=== PATIENT | female | born 1965 | race Caucasian/White ===

== ENCOUNTER 2022-02-26 13:16 | Outpatient (REF) | payer MEDICAID, SELFPAY ==
--- NOTE | ~2022-02-26 | MM_ITS ---
EXAMINATION: MM SCREENING DIGITAL BREAST TOMOSYNTHESIS, BILATERAL CLINICAL INFORMATION: Screening. Asymptomatic. Prior history reduction mammoplasty. The lifetime risk of breast cancer based on the Tyrer-Cuzick Model is 4%. COMPARISON: Mammography: 03/17/2017 (new baseline). TECHNIQUE: Digital breast tomosynthesis is performed in both the craniocaudal and mediolateral oblique views along with computer-aided detection (CAD). Synthesized 2D images are generated from the tomosynthesis. FINDINGS: There are scattered areas of fibroglandular density (ACR BI-RADS breast composition Category b). Parenchymal pattern is similar to prior new baseline exam. There is scattered minor scarring and benign bulky rim calcifications consistent with the reduction mammoplasty. There are stable minor fibroglandular asymmetries. No significant mass. The axilla and skin contours are unremarkable. MM/MM tomosynthesis screening BI IMPRESSION: No mammographic evidence of malignancy. ASSESSMENT: BI-RADS 2: Benign RECOMMENDATION: Routine annual mammography screening. This patient's information was entered into a reminder system with a target due date for their next mammogram.
== END 2022-02-26 13:17 | disposition home or self-care (01) ==
LOC: HO.MAMMO 13:16
PROVIDERS: PCP Internal Medicine; Visit Provider Internal Medicine
DX: Z12.31 Encounter for screening mammogram for malignant neoplasm of breast (principal)
CPT/HCPCS: 77063; 77067

== ENCOUNTER 2023-01-31 13:03 | Outpatient (REF) | payer MEDICAID, SELFPAY ==
[2023-01-31 16:06] LABS: MANUAL DIFF FLAG NO
[2023-01-31 16:31] LABS: Basophils Percent Auto 0.4 % (0-2); Eosinophils Absolute Auto 0.2 X10*3/uL (0.0-0.4); Eosinophils Percent Auto 3.9 % (0-4); Hematocrit 37.6 % (37.0-47.0); Hemoglobin 12.2 g/dl (12.0-16.0); Imm Gran Abs Auto 0.06 X10*3/uL (0.00-0.03); Imm Gran Pct Auto 1.1 % (0.0-0.4); Lymphocytes Absolute Auto 1.5 X10*3/uL (1.2-4.9); Lymphocytes Percent Auto 25.8 % (20-40); Mean Corpuscular HGB Conc 32.4 g/dl (31.0-35.0); Mean Corpuscular Hemoglobin 30.3 pg (27.0-33.0); Mean Corpuscular Volume 93.5 fL (80.0-98.0); Mean Platelet Volume 11.9 fL (9.4-12.3); Monocytes Absolute Auto 0.4 X10*3/uL (0.1-1.2); Monocytes Percent Auto 7.8 % (2-11); Neutrophils Absolute Auto 3.5 x10*3/uL (2.0-8.3); Platelet Count 242 X10*3/uL (160-400); Red Blood Count 4.02 X10*6/uL (4.20-5.50); Red Cell Distribution Width 13.3 % (11.0-16.0); White Blood Count 5.7 X10*3/uL (4.8-10.8)
[2023-01-31 17:16] LABS: Alanine Aminotransferase 20 U/L (0-31); Albumin Level 3.6 g/dL (3.5-5.0); Alkaline Phosphatase 65 U/L (39-117); Anion Gap 11 (12-20); Aspartate Amino Transferase 18 U/L (5-31); Bilirubin Direct 0.2 mg/dL (0.0-0.5); Bilirubin Total 0.5 mg/dL (0.0-1.0); Blood Urea Nitrogen 10 mg/dL (9-16); Calcium 9.2 mg/dL (8.4-10.2); Carbon Dioxide 22 mmol/L (22-29); Chloride 109 mmol/L (96-108); Cholesterol 163 mg/dL; Estimated Glomerular Filt Rate > 60; Glucose Random 111 mg/dL (60-115); HDL Cholesterol 56 mg/dL; LDL Cholesterol Calculated 92 mg/dl; Potassium 4.1 mmol/L (3.3-5.1); Sodium 138 mmol/L (135-145); Total Protein 7.1 g/dL (6.5-8.0); Triglycerides 78 mg/dL
[2023-01-31 17:33] LABS: Free T4 (Free Thyroxine) 0.91 ng/dL (0.71-1.85)
[2023-02-01 05:27] LABS: Estimated Average Glucose 111 mg/dL; Hemoglobin A1c % 5.5 %
== END 2023-01-31 13:04 | disposition home or self-care (01) ==
LOC: HO.HHCL 13:03
PROVIDERS: Visit Provider Internal Medicine
DX: F33.2 Major depressive disorder, recurrent severe without psychotic features (principal); J45.40 Moderate persistent asthma, uncomplicated
CPT/HCPCS: 36415; 80048; 80061; 80076; 83036; 84439; 85025

== ENCOUNTER 2023-04-05 15:03 | Outpatient (AMB) | payer MEDICAID, SELFPAY ==
--- NOTE | 2023-04-05 15:11 | MHC.OFFVIS ---
Intake Intake Visit Reasons: UPPER CUTTER OUT/HHC for VV Intake Note: UPPER CUTTER OUT/PCP referral for bilateral LE rope like VV for many years Allergies No Known Allergies [No Known Allergies*] Allergy (Unverified 04/05/23 15:17) HPI UPPER CUTTER OUT/HHC for VV HPI Details Pleasant 57-year-old female patient presents for painful varicose veins. Complaints include pain over varicosities, swelling of lower extremities, cramping, fatigue, and heaviness of the lower extremities. It has been affecting there daily activities including walking. It is noted more so in left leg. Most concerning is a cluster varicosities in the left posterior thigh. Patient denies any previous venous surgery or injections. Patient denies any history of DVT/ PE. Patient denies any history of phlebitis. Trial of compression includes - [id number] They now present for vascular evaluation regarding their varicose veins. Review of Systems Const Reports as per HPI ENT Reports no additional complaints Card Denies chest pain, Denies chest pain at rest and Denies chest pain with activity Resp Denies chest congestion and Denies cough GI Reports no additional complaints Musc Details: pain over varicosities, aching of lower extremities, swelling, cramping, heaviness and tiredness, itching Denies abnormal gait Skin/Breast Reports pruritus and Denies wounds Neuro Reports no additional complaints and Denies abnormal gait Psych Denies no additional complaints Physical Exam Const General: cooperative, healthy appearing and comfortable Orientation/consciousness: oriented to person, oriented to place and oriented to time Neck Carotids: no bruits Chest Chest palpation & inspection: normal inspection of the chest and normal palpation of entire chest wall Resp Effort & Inspection: normal respiratory effort and able to speak in complete sentences Cardio Rate: regular rate Heart sounds: S1 normal heart sound present and S2 normal heart sound present Peripheral pulses: Peripheral pulses 2+ throughout GI Inspection: Yes normal to inspection Skin Other: +2 edema, cluster of varicosities in left posterior thigh General skin exam: dry skin Neuro General: oriented to person, oriented to place and oriented to time Extrem Right lower extremity: full ROM, normal capillary refill and edema Left lower extremity: full ROM, normal capillary refill and edema Psych Mental Status: mental status grossly normal Assessment & Plan Assessment & Plan (1) Varicose veins of left lower extremity with inflammation: Code(s): I83.12 - Varicose veins of left lower extremity with inflammation Plan: In short, the patient has evidence of venous insufficiency. I have discussed the pathophysiology with the patient. In addition I have provided informational material regarding venous disease to the patient. We have discussed conservative measures including compression, elevation, and exercise. I have also provided a handout regarding appropriate use of compression stockings and where to purchase good compression stockings as well. I have taken the liberty of ordering venous insufficiency testing with the patient. They will follow up with me after testing. The patient had an opportunity to ask questions regarding the treatment plan. All questions were answered. Imaging studies, laboratory studies and physical exam results were discussed and reviewed in detail. No major barriers to understanding were identified. The patient expressed understanding and agreement with the above treatment plan. The patient is aware they should contact our office by phone for worsening of the current condition or the appearance of new symptoms. Thank you for allowing me to participate in the vascular care of this patient. If you have any questions or concerns regarding the treatment for the above condition please do not hesitate to contact me. The office telephone contact is [phone]. This note is constructed using voice recognition software. While every effort has been made to ensure accuracy, equipment operat0r errors may have been included. Thank you for allowing me to participate in the care of your patient. Yours sincerely, Gregory Dawson MD, FACS, R.P.V.I. Orders: Orders US venous duplex LE BI 1 Week I83.12 - Varicose veins of left lower extremity with inflammation Coding Level of Care Code New Pt Level 4 (88797) Diagnoses Varicose veins of left lower extremity with inflammation I83.12
== END 2023-04-05 15:29 | disposition home or self-care (01) ==
PROVIDERS: PCP Internal Medicine; Visit Provider Surgery Vascular Surgery
DX: I83.12 Varicose veins of left lower extremity with inflammation (principal)
CPT/HCPCS: 99203

== ENCOUNTER → 2023-04-05 15:03 | Outpatient (BNVA) | payer MEDICAID, SELFPAY | PROVIDERS: PCP Internal Medicine; Visit Provider Surgery Vascular Surgery ==

== ENCOUNTER 2023-04-13 08:25 | Outpatient (REF) | payer MEDICAID, SELFPAY ==
--- NOTE | ~2023-04-13 | US_ITS ---
EXAMINATION: RIGHT and LEFT LOWER EXTREMITY VENOUS ULTRASOUND (Reflux Exam) CLINICAL INDICATION: Varicose veins of left lower extremity with inflammation COMPARISON: None. TECHNIQUE: Color flow triplex imaging and compression Doppler was performed to evaluate both the deep and the superficial systems bilaterally. To evaluate the superficial system, the examination was performed in the upright position. Color-flow Doppler ultrasound and compression ultrasound were utilized. In addition, maneuvers were utilized to demonstrate reflux. FINDINGS: 1. DEEP VENOUS ULTRASOUND OF THE RIGHT LOWER EXTREMITY: Respiratory variation, normal compression and augmented flow are noted in the right common femoral vein as well as the right popliteal vein and there is no evidence of deep venous thrombosis at these locations. There is no evidence of reflux in the deep system in either the common femoral vein or the popliteal vein. There is no evidence of a Caba's cyst. 2. SUPERFICIAL ULTRASOUND WITH DOPPLER OF RIGHT LOWER EXTREMITY: The right great saphenous vein at the saphenofemoral junction measures 8 mm, at the mid thigh 2 mm, ifple-nzw-sfrp 2 mm, aaocu-def-eigj 2 mm, at mid calf 3 mm and at the ankle measures 3 mm. There is no reflux demonstrated in the right great saphenous vein. The right small saphenous vein measures 2-3 mm and shows no reflux. There are small perforators in the distal thigh and lower leg measuring 2 to 3 mm without reflux. 3. DEEP VENOUS ULTRASOUND OF THE LEFT LOWER EXTREMITY: Respiratory variation, normal compression and augmented flow are noted in the left common femoral vein as well as the left popliteal vein and there is no evidence of deep venous thrombosis at these locations. There is no evidence of reflux in the deep system in either the common femoral vein or the popliteal vein. . There is no evidence of a Caba's cyst. 4. SUPERFICIAL ULTRASOUND WITH DOPPLER OF LEFT LOWER EXTREMITY: Left great saphenous vein at the saphenofemoral junction measures 3 mm, at the mid thigh 3 mm, nxvns-nhn-kzcl 2 mm, therc-caz-nppm 2 mm, at mid calf 2 mm and at the ankle measures 2 mm. There is no reflux demonstrated in the left great saphenous vein. The left small saphenous vein measures 1-2 mm and shows no reflux. There is a water trainer in the mid thigh measuring 1 mm without reflux. US/US venous duplex LE BI IMPRESSION: 1. No evidence of reflux or thrombus in the common femoral veins or popliteal veins bilaterally. 2. The saphenous systems are competent bilaterally.
== END 2023-04-13 08:26 | disposition home or self-care (01) ==
LOC: HO.US 08:25
PROVIDERS: PCP Internal Medicine; Visit Provider Surgery Vascular Surgery
DX: I83.12 Varicose veins of left lower extremity with inflammation (principal)
CPT/HCPCS: 93970

== ENCOUNTER 2023-05-24 18:20 | Outpatient (REF) | payer MEDICAID, SELFPAY | END 2023-05-24 18:21 | disposition home or self-care (01) | LOC: HO.HHCLNP 18:20 | PROVIDERS: Visit Provider Internal Medicine | DX: J06.9 Acute upper respiratory infection, unspecified (principal) | CPT/HCPCS: 87070 ==

== ENCOUNTER 2023-06-16 13:51 | Outpatient (AMB) | payer MEDICAID, SELFPAY ==
--- NOTE | 2023-06-16 13:53 | A.OFFVIS_ITS ---
Intake Intake Visit Reasons: Follow Up Arterial US Intake Note: FU us on 04/13/23 pt states she still gets pain in her legs but mostly her left one and she notices more when she walks Testing Machine Operator Required: Yes Testing Machine Operator Name: herve salas Information Interpreted: non-clinical & clinical Allergies No Known Allergies [No Known Allergies*] Allergy (Verified 06/16/23 13:56) HPI Follow Up Arterial US HPI Details Very pleasant 58-year-old female presents for follow-up regarding venous insufficiency. She originally presented for lower extremity pain. She reports that it was more on her left leg in on the lateral aspect. She reports that it is more so when she is ambulatory and she also has an unusual sensation in that knee location. She now presents for follow-up with venous insufficiency testing. Review of Systems Const All systems reviewed & are unremarkable except as noted in HPI and below Reports no additional complaints ENT Reports Normal hearing present Card Denies chest pain, Denies chest pain at rest, Denies chest pain with activity and Denies pedal edema Resp Denies cough GI Denies abdominal pain Musc Denies abnormal gait, Denies muscle cramps and Denies radiating pain into limb Skin/Breast Denies skin ulcer and Denies wounds Neuro Reports Normal hearing present and Denies abnormal gait Psych Reports no additional complaints Physical Exam Const General: cooperative, healthy appearing and comfortable Orientation/consciousness: oriented to person, oriented to place and oriented to time HEENT Head: Yes normal to inspection Neck Neck: Yes normal visual inspection Carotids: no bruits Chest Chest palpation & inspection: normal inspection of the chest Resp Effort & Inspection: normal respiratory effort and able to speak in complete sentences Auscultation: clear to auscultation bilaterally, no crackles, no rales, no rhonchi and no wheezes Cardio Rate: regular rate Rhythm: regular rhythm Heart sounds: S1 normal heart sound present and S2 normal heart sound present Bruits: no carotid bruits Peripheral pulses: Peripheral pulses 2+ throughout GI Inspection: Yes normal to inspection Skin Wounds: no wounds Hair: normal Neuro General: oriented to person, oriented to place and oriented to time Cranial nerves: Yes CN's II-XII intact bilaterally and Yes Normal hearing present Cognition (Neuro): normal cognition Motor exam (neuro): 5/5 motor strength present throughout Extrem Other: venous exam: No significant superficial varicosities or spider telangiectasias, minimal edema General: No clubbing, No cyanosis and No edema Psych Appearance: grossly normal Mental Status: mental status grossly normal Speech and movement: Normal speech and movement present Results Reviewed Results Reviewed: Brief summary of venous insufficiency testing is as follows: right great saphenous vein: negative right small saphenous vein: negative right accessory vein: none present left great saphenous vein: negative left small saphenous vein: negative left accessory vein: none present Please note there is no evidence of any venous aneurysms or significant tortuosity Assessment & Plan Assessment & Plan (1) Leg pain, bilateral: Code(s): M79.604 - Pain in right leg; M79.605 - Pain in left leg Plan: Unclear etiology of lower extremity pain. Does not appear to be vascular in nature as she does have palpable pulses and venous insufficiency testing has shown to be negative. This left knee pain may be more orthopedic in nature. Should persist may benefit from x-ray and possible orthopedic evaluation. She will follow up with us on an as-needed basis. Should there be any questions or concerns please do not hesitate to contact us. Thank you for allowing us to assist in her care Coding Level of Care Code Est Pt Level 4 (16921) Diagnoses Leg pain, bilateral M79.604; M79.605
== END 2023-06-16 14:14 | disposition home or self-care (01) ==
PROVIDERS: PCP Internal Medicine; Visit Provider Surgery Vascular Surgery
DX: M79.604 Pain in right leg (principal); M79.605 Pain in left leg
CPT/HCPCS: 99213

== ENCOUNTER → 2023-06-16 13:51 | Outpatient (BNVA) | payer MEDICAID, SELFPAY | PROVIDERS: PCP Internal Medicine; Visit Provider Surgery Vascular Surgery | DX: M79.604 Pain in right leg (principal); M79.605 Pain in left leg | CPT/HCPCS: 99212 ==

== ENCOUNTER 2024-01-23 15:56 | Outpatient (REF) | payer MEDICAID, SELFPAY | END 2024-01-23 15:57 | disposition home or self-care (01) | LOC: HO.HHCLNP 15:56 | PROVIDERS: Visit Provider Internal Medicine | DX: R39.9 Unspecified symptoms and signs involving the genitourinary system (principal) | CPT/HCPCS: 87086 ==

== ENCOUNTER 2024-08-08 16:10 | Outpatient (REF) | payer MEDICAID, SELFPAY ==
--- OUTSIDE RECORDS SUMMARY | 2024-08-08 18:12 | XMS_ITS | Encounter Summary ---
Author Organization [employer] Address [address] [place] [address] Care Team Providers Care Solar Energy Systems Designer Name Role Phone Denise Fleming MD Primary Care Provide r Reason for Visit * Reason Comments Med Refill Encounter Details Date Type Department Care Team (Late st Contact Info) Description 12/21/2023 Refill [facility] [address] [place], [place] [phone] Denise Fleming MD [address] [place], [place] [phone] Primary insomnia Social History Tobacco Use Types Packs/Day Years Used Date Smoking Tobacco: Never Passive Smoke Exposure: Never Smokeless Tobacco: Never Alcohol Use Standard Drinks/Week Comments Never 0 (1 standard drink = 0.6 oz pur e alcohol) Depression Answer Date Recorded Patient Health Questionnaire-9 Score 21 02/01/2023 Housing Stability Answer Date Recorded What is your housing situation today? I have andres pelayo 08/25/[address] you li ve. Do you have problems with any of the following? Lead [place] or [employer] 08/25/2023 Food Insecurity Answer Date Recorded Within the past 12 months, y ou worried that your food would run out before you got money to buy more: Never True 05/03/2023 Within the past 12 months,th e food you bought just didn't last and you didn't have enough money to get more: Never True Transportation Answer Date Recorded In the past 12 months, has l ack of transportation kept you from medical appts, meetings, work or from getting things needed for daily living? No 05/03/2023 Utilities Answer Date Recorded In the past 12 months, has t he electric, gas, oil or water company threatened to shut off services in your home? No 05/03/2023 Depression Answer Date Recorded Patient Health Questionnaire-2 Score 6 02/01/2023 Comments Unknown Sex and Gender Information Value Date Recorded Sex Assigned at Female 05/17/2022 10:20 AM EDT Legal Sex Female 10:20 AM EDT Gender Identity Female 05/17/2022 10:20 AM EDT Sexual Orientation Straight 05/17/2022 10 :20 AM EDT documented as of this encounter Plan of Treatment Upcoming Encounters Date Type Department Care Team (Late st Contact Info) Description 09/17/2024 2:45 PM EST Office Visit [facility] [address] [place] [phone] Denise Fleming MD [address] [place] [phone] documented as of this encounter Visit Diagnoses Diagnosis Primary insomnia Persistent disorder of initiating or maintaining sleep documented in this encounter Additional Health Concerns Assessment Noted Time PHQ-9 Depression Total Score: 21 023 4:00 PM EDT documented as of this encounter Care Teams Solar Energy Systems Designer Relationship Specialty Start Date End Date Denise Fleming MD [address] [place] [id number] PCP - General Family Medicine 05/10/19 documented as of this encounter
--- OUTSIDE RECORDS SUMMARY | 2024-08-08 18:12 | XMS_ITS | Encounter Summary ---
Author Organization [facility] Address [address] [facility] [address] [facility] [address] [place] [address] Care Team Providers Care Fitter / Welder Name Role Phone Denise Fleming MD Primary Care Provide r Reason for Visit * Reason Onset Date Comments Appointment 01/21/2023 Encounter Details Date Type Department Care Team ([facility] st Contact Info) Description 01/21/2023 Telephone [facility] [address] [place], [place] [phone] Jose Person DDS [address] [place], [place] [phone] Appointment Social History Tobacco Use Types Packs/Day Years Used Date Smoking Tobacco: Never Smokeless Tobacco: Never Alcohol Use Standard Drinks/Week Comments Never 0 (1 standard drink = 0.6 oz pur e alcohol) Comments Unknown Sex and Gender Information Value Date Recorded Sex Assigned at Female 05/17/2022 10:20 AM EDT Legal Sex Female 10:20 AM EDT Gender Identity Female 05/17/2022 10:20 AM EDT Sexual Orientation Straight 05/17/2022 10 :20 AM EDT COVID-19 Exposure Response Date Recorded In the last 10 days, have yo u been in contact with someone who was confirmed or suspected to have Coronavirus/COVID-19? No / Unsure 01/20/2023 3:15 PM EDT documented as of this encounter Miscellaneous Notes * Telephone Encounter - Merced Coker - 01/24/2023 1:57 PM EDT Patient calling in again to confirm if case is back from lab. * Telephone Encounter - Ida Tesfayegas - 01/24/2023 12:22 PM EDT Denise Castaneda 1965 Patient called in to confirm if partial is ready for moss picker please advise. * Telephone Encounter - Iad Biggs - 01/21/2023 12:45 PM EDT Okay thank you I will inform patient * Telephone Encounter - Ida Biggs - 01/21/2023 12:22 PM EDT Denise Castaneda 1965 Patient called in to confirm if partial is ready for moss picker please advise. documented in this encounter Plan of Treatment Upcoming Encounters Date Type Department Care Team (Late st Contact Info) Description 09/17/2024 2:45 PM EST Office Visit [facility] [address] [place], [place] [phone] Denise Fleming MD [address] [place] [phone] documented as of this encounter Visit Diagnoses Not on filedocumented in this encounter Care Teams Fitter / Welder Relationship Specialty Start Date End Date Denise Fleming MD [address] [place] [address] PCP - General Family Medicine 05/10/19 documented as of this encounter
--- OUTSIDE RECORDS SUMMARY | 2024-08-08 18:12 | XMS_ITS | Encounter Summary ---
Author Organization [employer] Address [address] [place] [address] Care Team Providers Care X Ray Control Equipment Repairer Name Role Phone Denise Fleming MD Primary Care Provide r Reason for Visit * Reason Onset Date Comments Nurse Triage 03/30/2024 Encounter Details Date Type Department Care Team ([facility] st Contact Info) Description 03/30/2024 Telephone [facility] [address] [place], [place] [phone] Denise Fleming MD [address] [place] [address] Nurse Triage Social History Tobacco Use Types Packs/Day Years Used Date Smoking Tobacco: Never Passive Smoke Exposure: Never Smokeless Tobacco: Never Alcohol Use Standard Drinks/Week Comments Never 0 (1 standard drink = 0.6 oz pur e alcohol) Depression Answer Date Recorded Patient Health Questionnaire-9 Score 24 03/13/2024 Patient Health Questionnaire-9 Score 24 03/13/2024 Last PHQ-9: Questionnaire Data Not on file 0 03/13/2024 Housing Stability Answer Date Recorded What is your housing situation today? I have andres pelayo 08/25/[address] you li ve. Do you have problems with any of the following? Lead [place] or [employer] 08/25/2023 Food Insecurity Answer Date [...] Date Recorded Patient Health Questionnaire-2 Score 6 03/13/2024 Comments Unknown Sex and Gender Information Value Date Recorded Sex Assigned at Female 05/17/2022 10:20 AM EDT Legal Sex Female 10:20 AM EDT Gender Identity Female 05/17/2022 10:20 AM EDT Sexual Orientation Straight 05/17/2022 10 :20 AM EDT documented as of this encounter Miscellaneous Notes * Telephone Encounter - Leida Cooney RN - 03/30/2024 2:18 PM EDT Called pt via [employer] [phone]. Called [phone] There was an unexpected problemdialing this number please try again. Verified number on file with [employer] and same message came on the phone. Unable to reach pt. Called alternative number [phone] to call Son to verify pt. Phone number and a message came on the phone stating This number is restricted please try again later. Unable to reach pt. Will send this message to [facility] to try to reach out to pt. RE: Anxiety/Panic attack * Telephone Encounter - Edison Diane - 03/30/2024 2:05 PM EDT Symptom: Anxiety or Panic Attack Outcome: Schedule an urgent appointment (within 4 hours) or talk to a nurse or provider soon Reason: Anxiety keeps from normal daily activities (such as school or work) The caller accepted this outcome Patient speaks swedish documented in this encounter Plan of Treatment Upcoming Encounters Date Type Department Care Team (Late st Contact Info) Description 09/17/2024 2:45 PM EST Office Visit [facility] [address] [place] [address] Denise Fleming MD [address] [place] [address] documented as of this encounter Visit Diagnoses Not on filedocumented in this encounter Additional Health Concerns Assessment Noted Time PHQ-9 Depression Total Score: 24 024 1:27 PM EDT documented as of this encounter Care Teams X Ray Control Equipment Repairer Relationship Specialty Start Date End Date Denise Fleming MD [address] [place] [address] PCP - General Family Medicine 05/10/19 documented as of this encounter
--- OUTSIDE RECORDS SUMMARY | 2024-08-08 18:12 | XMS_ITS | Encounter Summary ---
Author Organization [facility] Address [address] [place] [address] 7t [place] [address] Care Team Providers Care Bobbin Doffer Name Role Phone Denise Fleming MD Primary Care Provide r Encounter Details Date Type Department Care Team (Late Contact Info) Description 11/08/2022 Orders Only [facility] [address] [place] [address] [phone] Lisette Rivera LPN Social History Tobacco Use Types Packs/Day Years Used Date Smoking Tobacco: Never Assessed Comments Unknown Sex and Gender Information Value [...] suspected to have Coronavirus/COVID-19? No / Unsure 11/09/2022 10:51 AM EDT documented as of this encounter Plan of Treatment Upcoming Encounters Date Type Department Care Team (Late st Contact Info) Description 09/17/2024 2:45 PM EST Office Visit [facility] [address] [place] [address] [phone] Denise Fleming MD [address] [place], [place] [phone] documented as of this encounter Procedures Procedure Name Priority Date/Time Associated Diagnosis Comments CBC WITH AUTO DIFFERENTIAL Routine 01/31/2023 1:07 PM EDT T4, FREE Routine 01/31/2023 1:07 PM EDT HEMOGLOBIN A1C Routine 01/31/2023 1:07 PM EDT HEPATIC FUNCTION PANEL Routine 01/31/2023 1:07 PM EDT LIPID PANEL, STANDARD Routine 01/31/2023 1:07 PM EDT BASIC METABOLIC PANEL Routine 01/31/2023 1:07 PM EDT documented in this encounter Results * Hemoglobin A1c (01/31/2023 1:07 PM EDT) Hemoglobin A1c 5.5 % [facility] Comment:Hemoglobin A1C Refer ence Range Adults: 4.8 - 6.0 % Non diabetic: < 6.0 % Goal: < 7.0 %Additional Action Suggested: > 8.0 %Note: Hemoglobin A1c results are invalid for patients with abnormal amounts of HbF. Blood transfusions may impact the HbA1c concentration in the patient sample. Estimated Average Glucose 111 mg/dL [facility] Comment:eAG = Estimated ave rage glucose which is %A1C expressed asaverage glucose, using the formula of the [id number] Glucose study (ADAG), Diabetes Care, Vol.31,#8,Feb. 2007 01/31/2023 1:07 PM EDT 01/31/2023 4:03 PM EDT us [facility] External Provider LAB BLO OD ORDERABLES Final Result [facility] [address] [place] [address] [phone] * T4, Free (01/31/2023 1:07 PM EDT) Free T4 (Free Thyroxine) 0.91 0.71 - 1.85 ng/dL [facility] 01/31/2023 1:07 PM EDT 01/31/2023 4:03 PM EDT [facility] External Provider LAB BLO OD ORDERABLES Final Result Performing Organization Address [facility] Co de Phone Number [facility] [address] [place] [address] [phone] * Lipid Panel, Standard (01/31/2023 1:07 PM EDT) Triglycerides 78 mg/dL [facility] Comment:Desirable Triglyceri de: less than 150 mg/dLBorderline High Triglyceride 150-199 mg/dLHigh Triglyceride: 200-499 mg/dLVery High Triglyceride: greater than or equal to 5OO mg/dL Cholesterol 163 mg/dL [facility] Comment:Desirable Cholestero l: less than 200 mg/dLBorderline High Cholesterol: 200-239 mg/dLHigh Cholesterol: greater than 239 mg/dL LDL Cholesterol Calculated 92 mg/dl [facility] Comment:Desirable LDL: less than 100 mg/dLNear Optimal/Above Optimal LDL: 110- 129 mg/dLBorderline High LDL: 130-159 mg/dLHigh LDL: 160-189 mg/dLVery High LDL: greater than or equal to 190 mg/dL HDL Cholesterol 56 mg/dL [facility] Comment:Desirable HDL: great er than 40 mg/dL Note: This HDL assay may give artificially low results in patients with liver disease. 01/31/2023 1:07 PM EDT 01/31/2023 4:03 PM EDT [facility] External Provider LAB BLO OD ORDERABLES Final Result Performing Organization Address [facility]/ZIP Co de Phone Number [facility] [address] [place] [phone] * (ABNORMAL) Basic Metabolic Panel (01/31/2023 1:07 PM EDT) Sodium 138 135 - 145 mmol/L [facility] Potassium 4.1 3.3 - 5.1 mmol/L [facility] Chloride 109(H) 96 - 108 mmol/L [facility] Carbon Dioxide 22 22 - 29 mmol/L [facility] Anion Gap 11(L) 12 - 20 [facility] Urea Nitrogen (BUN) 10 9 - 16 mg/dL [facility] Creatinine, Serum 0.84 0.5 - 1.4 mg/dL [facility] Estimated Glomerular Filt Rate >60 [facility] Comment:NOTE: For -Am erican individuals, multiply the result by 1.210.Chronic Kidney Disease: Estimated GFR < 60 mL/min/1.07f6Bgupqf Kidney Disease: Estimated GFR < 15 mL/min/1.73m2 Glucose 111 60 - 115 mg/dL [facility] Calcium 9.2 8.4 - 10.2 mg/dL [facility] 01/31/2023 1:07 PM EDT 01/31/2023 4:03 PM EDT [facility] External Provider LAB BLO OD ORDERABLES Final Result [facility] [address] [place] [address] [phone] * Hepatic Function Panel (01/31/2023 1:07 PM EDT) Bilirubin, Total 0.5 0.0 - 1.0 mg/dL [facility] Bilirubin, Direct 0.2 0.0 - 0.5 mg/dL [facility] Aspartate Amino Transferase 18 5 - 31 U/L [facility] Alanine Aminotransferase 20 0 - 31 U/L [facility] Total Protein 7.1 6.5 - 8.0 g/dL [facility] Albumin Level 3.6 3.5 - 5.0 g/dL [facility] Alkaline Phosphatase 65 39 - 117 U/L [facility] 01/31/2023 1:07 PM EDT 01/31/2023 4:03 PM EDT [facility] External Provider LAB BLO OD ORDERABLES Final Result [facility] [address] [place], [place] [phone] * (ABNORMAL) CBC auto differential (01/31/2023 1:07 PM EDT) White Blood Count 5.7 4.8 - 10.8 X10*3/uL [facility] Red Blood Count 4.02(L) 4.20 - 5.50 X10*6/uL [facility] Hemoglobin 12.2 12.0 - 16.0 g/dl [facility] Hematocrit 37.6 37.0 - 47.0 % [facility] Mean Corpuscular Volume 93.5 80.0 - 98.0 fL [facility] Mean Corpuscular Hemoglobin 30.3 27.0 - 33.0 pg [facility] Mean Corpuscular HGB Conc 32.4 31.0 - 35.0 g/dl [facility] Red Cell Distribution Width 13.3 11.0 - 16.0 % [facility] Platelet Count 242 160 - 400 X10*3/uL [facility] Mean Platelet Volume 11.9 9.4 - 12.3 fL [facility] Neutrophils Percent Auto 61.0 45 - 73 % [facility] Imm Gran Pct Auto 1.1(H) 0.0 - 0.4 % [facility] Lymphocytes Percent Auto 25.8 20 - 40 % [facility] Monocytes Percent Auto 7.8 2 - 11 % [facility] Eosinophils Percent Auto 3.9 0 - 4 % [facility] Basophils Percent Auto 0.4 0 - 2 % [facility] NRBC Pct Auto 0.0 0.0 - 0.2 /100WBC [facility] Neutrophils Absolute Auto 3.5 2.0 - 8.3 x10*3/uL [facility] Imm Gran Abs Auto 0.06(H) 0.00 - 0.03 X10*3/uL [facility] Lymphocytes Absolute Auto 1.5 1.2 - 4.9 X10*3/uL [facility] Monocytes Absolute Auto 0.4 0.1 - 1.2 X10*3/uL [facility] Eosinophils Absolute Auto 0.2 0.0 - 0.4 X10*3/uL [facility] Basophils Absolute Auto 0.0 0.0 - 0.2 X10*3/uL [facility] NRBC Abs Auto 0.000 0.0 - 0.012 X10*3/uL [facility] 01/31/2023 1:07 PM EDT 01/31/2023 4:03 PM EDT [facility] External Provider LAB BLO OD ORDERABLES Final Result Performing Organization Address City/State/[facility] Co de Phone Number [facility] [address] [place] [phone] documented in this encounter Visit Diagnoses Not on filedocumented in this encounter Care Teams Bobbin Doffer Relationship Specialty Start Date End Date Denise Fleming MD [address] [place] [phone] PCP - General Family Medicine 05/10/19 documented as of this encounter
--- OUTSIDE RECORDS SUMMARY | 2024-08-08 18:12 | XMS_ITS | Encounter Summary ---
Author Organization [facility] Address [address] [place] [address] Care Team Providers Care Cane Splicer Name Role Phone Denise Fleming MD Primary Care Provide r Reason for Visit * Reason Comments Med Refill Encounter Details Date Type Department Care Team (Late st Contact Info) Description 04/05/2024 Refill [facility] [address] [place], [place] [phone] Janice Jarvis MD [address] [place], [place] [phone] Other hyperlipidemia Social History Tobacco Use Types Packs/Day Years [...] problems with any of the following? Lead [place] or [place] 08/25/2023 Food Insecurity Answer Date [...] Description 09/17/2024 2:45 PM EST Office Visit [facility] [address] [place] [phone] Denise Fleming MD [address] [place] [phone] documented as of this encounter Visit Diagnoses Diagnosis Other hyperlipidemia documented in this encounter Additional Health Concerns Assessment Noted Time PHQ-9 Depression Total Score: 24 024 1:27 PM EDT documented as of this encounter Care Teams Cane Splicer Relationship Specialty Start Date End Date Denise Fleming MD [address] [place] [phone] PCP - General Family Medicine 05/10/19 documented as of this encounter
--- OUTSIDE RECORDS SUMMARY | 2024-08-08 18:12 | XMS_ITS | Encounter Summary ---
Author Organization [facility] Address [address] [facility] [address]t [place] [address] Care Team Providers Care Desk Clerk Name Role Phone Denise Fleming MD Primary Care Provide r Reason for Visit * Reason Comments Med Refill Encounter Details Date Type Department Care Team (Late st Contact Info) Description 10/15/2023 Refill [facility] [address] [place], [place] [phone] Denise Fleming MD [address] [place], [place] [phone] Depression, unspecified depression type Social History Tobacco Use Types Packs/Day Years [...] problems with any of the following? Lead [place] or [place] 08/25/2023 Food Insecurity Answer Date [...] Description 09/17/2024 2:45 PM EST Office Visit [facility] [address] [place] [phone] Denise Fleming MD [address] [place] [address] documented as of this encounter Visit Diagnoses Diagnosis Depression, unspecified depression type documented in this encounter Additional Health Concerns Assessment Noted Time PHQ-9 Depression Total Score: 21 023 4:00 PM EDT documented as of this encounter Care Teams Desk Clerk Relationship Specialty Start Date End Date Denise Fleming MD [address] [place] [phone] PCP - General Family Medicine 05/10/19 documented as of this encounter
--- OUTSIDE RECORDS SUMMARY | 2024-08-08 18:12 | XMS_ITS | Encounter Summary ---
Author Organization [facility] Address [address] [facility] [address] [place] [address] Care Team Providers Care Window Trimmer Name Role Phone Denise Fleming MD Primary Care Provide r Reason for Visit * Reason Comments Med Refill Encounter Details Date Type Department Care Team ([facility] st Contact Info) Description 06/01/2023 Refill [facility] [address] [place], [place] [phone] Janice Jarvis MD [address] [place], [place] [phone] Depression, unspecified depression type; Primary hypertension Social History Tobacco Use Types Packs/Day Years Used Date Smoking Tobacco: Never Passive Smoke Exposure: Never Smokeless Tobacco: Never Alcohol Use Standard Drinks/Week Comments Never 0 (1 standard drink = 0.6 oz pur e alcohol) Depression Answer Date Recorded Patient Health Questionnaire-9 Score 21 02/01/2023 Housing Stability Answer Date Recorded What is your housing situation today? I have andres pelayo 05/03/[address] you li ve. Do you have problems with any of the following? None of the above 05/03/2023 Food Insecurity Answer Date Recorded Within the [...] Description 09/17/2024 2:45 PM EST Office Visit [facility] [address] [place] [address] Denise Fleming MD [address] [place] [address] documented as of this encounter Visit Diagnoses Diagnosis Depression, unspecified depression type Primary hypertension Unspecified essential hypertension documented in this encounter Additional Health Concerns Assessment Noted Time PHQ-9 Depression Total Score: 21 023 4:00 PM EDT documented as of this encounter Care Teams Window Trimmer Relationship Specialty Start Date End Date Denise Fleming MD [address] [place] [address] PCP - General Family Medicine 05/10/19 documented as of this encounter
--- OUTSIDE RECORDS SUMMARY | 2024-08-08 18:12 | XMS_ITS | Encounter Summary ---
Author Organization [employer] [facility] Address [address] [facility] [address]t [place] [address] Care Team Providers Care Antiquer Name Role Phone Denise Fleming MD Primary Care Provide r Reason for Visit * Reason Onset Date Comments Med Refill 07/28/2023 Encounter Details Date Type Department Care Team ([facility] st Contact Info) Description 07/28/2023 Refill [facility] [address] [place], [place] [phone] Denise Fleming MD [address] [place] [address] Primary insomnia Social History Tobacco Use Types [...] encounter Miscellaneous Notes * Telephone Encounter - Yoselyn Summers - 07/28/2023 12:59 PM EST TC from pt requesting medication refill. Medications needing refill : zolpidem (Ambien) 10 MG tablet To be sent to: [facility] - [place], [place] - [address] [place] [address] documented in this encounter Plan of Treatment Upcoming Encounters Date Type Department Care Team (Late st Contact Info) Description 09/17/2024 2:45 PM EST Office Visit [facility] [address] [place] [address] Denise Fleming MD [address] [place] [address] documented as of this encounter Visit Diagnoses Diagnosis Primary insomnia Persistent disorder of initiating or maintaining sleep documented in this encounter Additional Health Concerns Assessment Noted Time PHQ-9 Depression Total Score: 21 023 4:00 PM EDT documented as of this encounter Care Teams Antiquer Relationship Specialty Start Date End Date Denise Fleming MD [address] [place] [address] PCP - General Family Medicine 05/10/19 documented as of this encounter
--- OUTSIDE RECORDS SUMMARY | 2024-08-08 18:12 | XMS_ITS | Clinical Summary ---
Author Organization [employer] Address [address] [place] [address] 7[address] [place] [address] Care Team Providers Care Tube Puller Name Role Phone Denise Fleming MD Primary Care Provide r Allergies No known active allergies Medications * This document contains information received from the source organization and may not represent a complete record from that organization. clotrimazole-beta methasone (Lotrisone) creamIndications: Itchy skin APPLY TO AFFECTED AREA(S) AND SURROUNDING AREA(S) TWICE DAILY IN THE MORNING AND EVENING 15 g 2 023 Active fluticasone (Flonase) 50 MCG/ACT nasal sprayIndications: Allergic rhinitis, unspecified seasonality, unspecified trigger INHALE 2 SPRAYS IN EACH NOSTRIL EVERY MORNING NEEDED FOR ALLERGIES 48 g 1 023 Active budesonide-formot preet (Symbicort) 160-4.5 MCG/ACT inhalerIndication s:Moderate persistent asthma, unspecified whether complicated Inhale 2 puffs in the morning and at bedtime. Rinse mouth with water after use to reduce aftertaste and incidence of candidiasis. Do not swallow. 1 each 023 Active albuterol 108 (90 Base) MCG/ACT inhalerIndication s:Mild persistent asthma with acute exacerbation Inhale 2 puffs every 6 (six) hours if needed for wheezing. 18 g 024 Active citalopram (CeleXA) 20 MG tabletIndications :Mixed anxiety and depressive disorder Take 1 tablet (20 mg) by mouth Once per day. 30 tablet 5 024 Active atenolol (Tenormin) 25 MG tablet TAKE 1/2 TABLET BY MOUTH TWICE DAILY IN THE MORNING AND AT BEDTIME 90 tablet 3 024 Active atorvastatin (Lipitor) 80 MG tabletIndications :Other hyperlipidemia TAKE 1 TABLET BY MOUTH AT BEDTIME 90 tablet 3 024 Active hydrocortisone (Anusol-HC) 2.5 % rectal creamIndications: Rectal bleeding Insert into the rectum 2 times daily. 28 g 024 Active psyllium (Metamucil Smooth Texture) 58.6 % powderIndications :Constipation, unspecified constipation type Take 5.12 g (3 g of fiber) by mouth 2 times daily. 283 g 2 024 2024 Active docusate sodium (Colace) 100 MG capsuleIndication s:Constipation, unspecified constipation type Take 1 tab po bid prn constipation 60 capsule 2 024 Active Aspirin Low Dose 81 MG EC tablet TAKE 1 TABLET BY MOUTH EVERY EVENING 90 tablet 1 024 Active pantoprazole (ProtoNix) 40 MG EC tablet TAKE 1 TABLET BY MOUTH EVERY MORNING 90 tablet 1 024 Active prazosin (Minipress) 2 MG capsuleIndication s:Primary hypertension TAKE 2 CAPSULES BY MOUTH EVERY DAY AT BEDTIME 180 capsule 1 024 Active montelukast (Singulair) 10 MG tabletIndications :Moderate persistent asthma, unspecified whether complicated TAKE 1 TABLET BY MOUTH EVERY EVENING 90 tablet 1 024 Active zolpidem (Ambien) 10 MG tabletIndications :Primary insomnia TAKE 1 TABLET BY MOUTH AT BEDTIME 30 tablet 025 Active zolpidem (Ambien) 10 MG tabletIndications :Primary insomnia TAKE 1 TABLET BY MOUTH AT BEDTIME 30 tablet 024 2024 Discontinued Active Problems Problem Noted Date Diagnosed Date Encounter for cervical Pap smear with pelvic exa m 08/08/2024 Assessment & Plan (08/08/2024 3:25 PM EST): PAP and pelvic exam done Patient will be contacted with results Rectal bleeding 05/08/2024 Assessment & Plan (05/08/2024 5:29 PM EDT): Pt w exam consistent w external hemorrhoid , no blood from anal exam -life style changes advised,increase activity -improve liquids , eat more fiber -px -anusol, metamucil and colace to start -referred to GI today -alarm signs and symptoms discussed w pt Enteritis 01/23/2024 Assessment & Plan (01/23/2024 5:16 PM EDT): RTC 2 weeks for re-evaluation UTI symptoms 01/23/2024 Mild persistent asthma with acute exacerbation 1 07/24/2022 Assessment & Plan (09/23/2023 4:29 PM EST): Controlled c/w same interventions Assessment & Plan (05/24/2023 6:41 PM EST): Albuterol updraft today, O2 at 0.5 li NC given for comfort. O2 never dropped below 97% when at [facility]. Patient felt comfortable without the O2 and after neb rx. Rx PRD x 5d, take it with main meal PAT. Albuterol inh with spacer q4h x 3d then q6h while on PRD, then prn only. RTC if sxs worsen. Education re use of Symbicort bid, she will dispose of Flovent at the pharmacy. Fu with PCP Viral URI 05/24/2023 Assessment & Plan (05/24/2023 6:38 PM EST): Rapid viral tests are NEG today, no PCR vials available to be sent for confirmation. Rest (sleep at least 8 hours a night). Hydrate with plenty of water (avoid caffeine and alcohol). 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 Initial goal of 30 min walk 3-5x/week. Increase as tolerated. - low-sodium diet (goal: <2g/day) and heart healthy diet such as DASH to reduce BP and prevent ASCVD. - Home BP monitoring 1-2 x day with goal of <140/90. - Seek immediate medical attention for chest pain, palpitations, SOB, syncope, or sudden changes in mental status. - Do not change or discontinue current prescriptions without first consulting health care provider Assessment & Plan (09/23/2023 4:30 PM EST): - Aerobic exercise to reduce BP. Initial goal of 30 min walk 3-5x/week. Increase as tolerated. - low-sodium diet (goal: <2g/day) and heart healthy diet such as DASH to reduce BP and prevent ASCVD. - Home BP monitoring 1-2 x day with goal of <140/90. - Seek immediate medical attention for chest pain, palpitations, SOB, syncope, or sudden changes in mental status. - Do not change or discontinue current prescriptions without first consulting health care provider Assessment & Plan (04/27/2023 2:28 PM EDT): - Aerobic exercise to reduce BP. Initial goal of 30 min walk 3-5x/week. Increase as tolerated. - low-sodium diet (goal: <2g/day) and heart healthy diet such as DASH to reduce BP and prevent ASCVD. - Home BP monitoring 1-2 x day with goal of <140/90. - Seek immediate medical attention for chest pain, palpitations, SOB, syncope, or sudden changes in mental status. - Do not change or discontinue current prescriptions without first consulting health care provider KYM (generalized anxiety disorder) 11/24/2022 Assessment & Plan (02/09/2024 12:00 PM EDT): C/w celexa 20mg daily C/w zolpidem 10mg at bed time for insomnia Assessment & Plan (09/23/2023 4:31 PM EST): I will increase her citalopram to 20mg daily C/w prazosin 4mg at bed time Continue to follow with therapist Moderate persistent asthma 11/24/2022 Assessment & Plan (04/27/2023 2:28 PM EDT): C/w symbicort, albuterol and montelukast Patient educated to avoid asthma triggers Assessment & Plan (02/10/2023 4:37 PM EDT): I discontinue flovent and started her on Symbicort I added montelukast C/w albuterol PRN Assessment & Plan (01/26/2023 2:24 PM EDT): Avoid asthma triggers, letter for housing will be generated for patient C/w flovent and albuterol PRN Carpal tunnel syndrome 06/26/2018 Chronic low back pain 06/26/2018 Hyperlipidemia 06/26/2018 Insomnia 06/26/2018 Posttraumatic stress disorder 06/26/2018 Varicose veins of lower extremity 06/26/2018 Angina pectoris 06/07/2016 History of myocardial infarct at age less than 6 0 years 06/07/2016 Severe recurrent major depre ssion without psychotic features 06/07/2016 Assessment & Plan (04/27/2023 2:30 PM EDT): C/w citalopram 10mg, prazosin 4mg and zolpidem at bed time Counseling done Patient in the process of getting a therapist and likely a psychiatrist Assessment & Plan (02/02/2023 10:17 AM EDT): Assessment: Patient with anhedonia, depressed mood, difficulties falling and staying asleep, feeling tired, no motivation, low self-esteem, poor appetite, isolation, trouble concentrating. She denies SI/HI. Patient reports there are contributing factors to her presentation but she wished not to elaborate. Patient will benefit from OP therapy referral. Medication management is currently being provided by her PCP. At this time Denise Gill meets criteria for Visit Diagnoses: Problem List Items Addressed This Visit Other Severe recurrent major depression without psychotic features (CMS/HCC) Patient ready to address current needs Yes Strengths include her stephanie PLAN: 1. Follow up with [facility]: Not recommended for follow-up 2. Patient goal is obtain therapy service 3. Behavioral Recommendations a. Patient will comply with medication regimen b. Patient will engage in therapy, once service is established c. Patient may request to speak with an [facility] during next PCP visit, if needed Assessment & Plan (01/26/2023 2:28 PM EDT): Counseling done Encounters Date Type Department Care Team Description 08/08/2024 10:45 AM EST Procedure Visit [facility] [address] [place] [phone] Denise Fleming MD Encounter for cervical Pap smear with pelvic exam (Primary Dx); Primary hypertension 08/08/2024 Travel 07/25/2024 Refill [facility] [address] [place] [phone] Denise Fleming MD Primary insomnia 06/25/[address] [address] Sebastien Cruz [place] Chart Prep 06/18/2024 Refill [facility] [address] [place] [phone] Denise Fleming MD Primary insomnia; Primary hypertension; Moderate persistent asthma, unspecified whether complicated 06/12/2024 Patient Outreach [facility] [address] [place] [phone] Denise Fleming MD Pre-visit Planning (SDOH screening completed on 08/25/2023) 05/29/2024 Refill [facility] [address] [place] [phone] Denise Fleming MD 05/21/2024 Refill [facility] [address] [place] [phone] Denise Fleming MD Primary insomnia [address] [phone] Denise Le MD from Last 3 Months Immunizations Name Administration Dates Next Due Influenza injectable quadriv alent IIV4 with preservative 05/18/2018 Pfizer Covid-19 Vaccine 12+ 11/26/2021,,12/10/2020 Pfizer Covid-19 Vaccine 12+ cindy-sucrose (Dubose Cap) 11/26/2021 Family History Medical History Relation Name Comments Kidney disease Brother Colon cancer Mother Coronary artery disease Mother Diabetes Mother Hypertension Mother Ovarian cancer Mother Strabismus Other Relation Name Status Comments Brother Mother Other Social History Tobacco Use Types Packs/Day Years Used Date Smoking Tobacco: Never Passive Smoke Exposure: Never Smokeless Tobacco: Never Tobacco Cessation:Counseling Given: Not Answered Alcohol Use Standard Drinks/Week Comments Never 0 [...] problems with any of the following? Lead [place] or [place] 08/25/2023 Food Insecurity Answer Date [...] Orientation Straight 05/17/2022 10 :20 AM EDT Last Filed Vital Signs Vital Sign Reading Time Taken Comments Blood Pressure 114/64 08/08/2024 10:30 AM EST Pulse 66 08/08/2024 10:30 AM EST Temperature 36.4 ??C (97.6 ??F) 08/08/2024 10:[address] Respiratory Rate 20 08/08/2024 10:30 AM EST Oxygen Saturation 97% 08/08/2024 10:30 AM EST Inhaled Oxygen Concentration - - Weight 72.3 kg (159 lb 6.4 oz) 08/08/2024 10:30 AM EST Height 149.9 cm (4' 11 ) 08/08/2024 10:30 AM EST Body Mass Index 32.19 08/08/2024 10:30 AM EST Plan of Treatment Upcoming Encounters Date Type Department Care Team (Late st Contact Info) Description 09/17/2024 2:45 PM EST Office Visit [facility] [address] [place], [place] [phone] Denise Fleming MD [address] [place], [place] [phone] Health Maintenance Due Date Last Done Comments CT Colonography 1963 Colonoscopy 1963 Colorectal Cancer Screening 1963 Dental X-Ray: Bitewings 1963 Dental X-Ray: Full Mouth 1963 FIT DNA/Cologuard 1963 FIT 1963 FOBT 1963 HIV Screening 1963 Sigmoidoscopy 1963 Pneumococcal Vaccine: Pediatrics (0 to 5 Years) and At-Risk Patients (6 to 64 Years) (1 of 2 - PCV) 1969 Alcohol/Substance Use Screening 1975 Hepatitis C Screening 1981 DTaP/Tdap/Td Vaccines (1 - Tdap) 1982 Pap Smear 1984 Zoster Vaccines (1 of 2) 2013 Dental Oral Exam 04/17/2023 10/14/2022 Dental Prophylaxis 04/17/2023 10/14/2022 RSV Patients and Patients Aged 60 years or older (1 - Risk 60-74 years 1-dose series) 2023 Mammogram 02/27/2024 02/26/2022 COVID-19 Vaccine ( season) 2024 11/26/2021, 11/26/2021, 12/31/2020, Additional history exists Influenza Vaccine (#1) 2024 05/18/2018 Cervical Cancer Screening 08/09/2024 HPV/Cotest 08/09/2024 08/09/2019 SDOH Screening 08/25/2024 08/25/2023 Depression Monitoring (PHQ-9) 09/13/2024 03/13/2024, 03/13/2024 Depression Screening 03/13/2025 03/13/2024, 03/13/20 24 Tobacco Screening 08/08/2025 08/08/2024 Lipid Panel 02/01/2028 01/31/2023, 02/18/2021 HIB Vaccines Aged Out No longer eligi ble based on patient's age to complete this topic HPV Vaccines Aged Out No longer eligi ble based on patient's age to complete this topic Hepatitis A Vaccines Aged Out No long er eligible based on patient's age to complete this topic Hepatitis B Vaccines Aged Out No long er eligible based on patient's age to complete this topic IPV Vaccines Aged Out No longer eligi ble based on patient's age to complete this topic Meningococcal Vaccine Aged Out No michelle denise eligible based on patient's age to complete this topic RSV under 20 months Aged Out No longe r eligible based on patient's age to complete this topic Rotavirus Vaccines Aged Out No longer eligible based on patient's age to complete this topic Procedures Procedure Name Priority Date/Time Associated Diagnosis Comments LIPID PANEL, STANDARD Routine 01/31/2023 1:07 PM EDT Full PROPHYLAXIS - ADULT Routine 10/14/2022 2:00 PM EDT Chronic periodontitis PERIODIC ORAL EVALUATION - ESTABLISHED PATIENT Routine 10/14/2022 2:00 PM EDT Encounter for dental examination MAMMOGRAM GENERIC Routine 02/26/2022 1:4 0 PM EDT ZZZ HISTORICAL HPV MRNA E6/E7 Routine 08/09/2019 12:03 PM EST from Last 3 Months or Most Recently Relevant to Health Maintenance Results * Lipid Panel, Standard (01/31/2023 1:07 PM EDT) Triglycerides 78 mg/dL [facility] Comment:Desirable Triglyceri de: less than 150 mg/dLBorderline High Triglyceride 150-199 mg/dLHigh Triglyceride: 200-499 mg/dLVery High Triglyceride: greater than or equal to 5OO mg/dL Cholesterol 163 mg/dL [facility] Comment:Desirable Cholestero l: less than 200 mg/dLBorderline High Cholesterol: 200-239 mg/dLHigh Cholesterol: greater than 239 mg/dL LDL Cholesterol Calculated 92 mg/dl [facility] Comment:Desirable LDL: less than 100 mg/dLNear Optimal/Above Optimal LDL: 110- 129 mg/dLBorderline High LDL: 130-159 mg/dLHigh LDL: 160-189 mg/dLVery High LDL: greater than or equal to 190 mg/dL HDL Cholesterol 56 mg/dL [facility] Comment:Desirable HDL: great er than 40 mg/dL Note: This HDL assay may give artificially low results in patients with liver disease. 01/31/2023 1:07 PM EDT 01/31/2023 4:03 PM EDT [facility] External Provider LAB BLO OD ORDERABLES Final Result [facility] [address] [place] [phone] * Mammography Report 1 (02/26/2022 1:40 PM EDT) Anatomical Region Laterality Modality Breast Bilateral Mammography 02/26/2022 1:40 PM EDT Narrative 03/02/2022 7:46 AM EDT Refer to the Notes tab for result details [facility] Procedure: Mammography Report 1 Procedure Note Provider, MD Tina - 10/10/2022 Refer to the Notes tab for result details [facility] Procedure: Mammography Report 1 us Denise Daniels MD IMG BI PROCEDURES Fin al Result * HPV mRNA E6/E7 (08/09/2019 12:03 PM EST) HPV mRNA E6/E7 Not Detected NOT DETECTED [facility] Comment: This test was performed using the APTIMA(R) HPV Assay ([employer] This assay detects E6/E7 viral messenger RNA (mRNA) from 14 high-risk HPV types (16,18,31,33,35,39,45,51, 52,56,58,59,66,68). For additional information please refer to: http://education.Yoke/faq/MTG307n1 (This link is being provided for informational/ educational purposes only.) The analytical performance characteristics of this assay have been determined by [employer] [place], [place]. The modifications have not been cleared or approved by the FDA. This assay has been validated pursuant to the CLIA regulations and is used for clinical purposes. Test Performed by [facility], [employer] [facility], [address] [place] [address] Sesar Sanchez M.D., Ph.D., Director of Laboratories , CLIA [id number] Please note: ??Effective 03/29/2016, HPV testing will be performed using [employer]'s APTIMA test which targets mRNA. Detecting mRNA instead of DNA, as in older methods, offers significant improvements in specificity. 08/09/2019 12:0 3 PM EST us Denise Daniels MD HISTORICAL/NON ORDERA BLE LABS Final Result [facility] [address] from Last 3 Months or Most Recently Relevant to Health Maintenance Insurance [address] [place] [address] [facility] [address] [place] [id number] [facility] STAND ADULT [address] [place] [address] [phone] [place] [phone] [place] [id number] Care Teams Tube Puller Relationship Specialty Start Date End Date Denise Fleming MD [address] [place] [phone] PCP - General Family Medicine 05/10/19
--- OUTSIDE RECORDS SUMMARY | 2024-08-08 18:12 | XMS_ITS | Encounter Summary ---
Author Organization [id number] Address [address] [facility] 7t [place] [address] Care Team Providers Care Hot Strip Mill Supervisor Name Role Phone Denise Fleming MD Primary Care Provide r Reason for Visit * Reason Comments Med Refill Encounter Details Date Type Department Care Team (Late st Contact Info) Description 05/04/2023 Refill [facility] [address] [place], [place] [phone] Denise Fleming MD [address] [place], [place] [phone] Primary hypertension Social History Tobacco Use Types [...] Description 09/17/2024 2:45 PM EST Office Visit [facility] [address] [place] [phone] Denise Fleming MD [address] [place] [phone] documented as of this encounter Visit Diagnoses Diagnosis Primary hypertension Unspecified essential hypertension documented in this encounter Additional Health Concerns Assessment Noted Time PHQ-9 Depression Total Score: 21 023 4:00 PM EDT documented as of this encounter Care Teams Hot Strip Mill Supervisor Relationship Specialty Start Date End Date Denise Fleming MD [address] [place] [phone] PCP - General Family Medicine 05/10/19 documented as of this encounter
--- OUTSIDE RECORDS SUMMARY | 2024-08-08 18:12 | XMS_ITS | Encounter Summary ---
Author Organization [employer] Address [address] [facility] 7t [place] [address] Care Team Providers Care Goal Umpire Name Role Phone Denise Fleming MD Primary Care Provide r Reason for Visit * Reason Comments Med Refill Encounter Details Date Type Department Care Team (Late st Contact Info) Description 05/03/2023 Refill [facility] [address] [place], [place] [phone] Denise Fleming MD [address] [place], [place] [phone] Primary hypertension; Other hyperlipidemia Social History Tobacco Use Types [...] encounter Miscellaneous Notes * Telephone Encounter - Rebecca Nunez - 05/04/2023 10:52 AM EDT Tc from patient requesting a med refill for medication zolpidem (Ambien) 10 MG tablet. Patient states she's traveling to [place] on 05/07/23 due to Mom not feeling well and it's an emergency. Patient needs medication for about a month. Patient speaks bolivian. documented in this encounter Plan of Treatment Upcoming Encounters Date Type Department Care Team (Late st Contact Info) Description 09/17/2024 2:45 PM EST Office Visit [facility] [address] [place] [address] Denise Fleming MD [address] [place] [address] documented as of this encounter Visit Diagnoses Diagnosis Primary hypertension Unspecified essential hypertension Other hyperlipidemia documented in this encounter Additional Health Concerns Assessment Noted Time PHQ-9 Depression Total Score: 21 023 4:00 PM EDT documented as of this encounter Care Teams Goal Umpire Relationship Specialty Start Date End Date Denise Fleming MD [address] [place] [phone] PCP - General Family Medicine 05/10/19 documented as of this encounter
--- OUTSIDE RECORDS SUMMARY | 2024-08-08 18:12 | XMS_ITS | Encounter Summary ---
Author Organization [employer] Address [address] [facility] 7t [place] [address] Care Team Providers Care Financial Services Officer Name Role Phone Denise Fleming MD Primary Care Provide r Reason for Visit * Reason Comments Med Refill Encounter Details Date Type Department Care Team (Late st Contact Info) Description 10/19/2023 Refill [facility] [address] [place], [place] [phone] Denise Fleming MD [address] [place], [place] [phone] Primary insomnia Social History Tobacco Use Types [...] problems with any of the following? Lead [place] or [place] 08/25/2023 Food Insecurity Answer Date [...] 09/17/2024 2:45 PM EST Office Visit [facility] [address] [place] [address] [phone] Denise Fleming MD [address] [place] [phone] documented as of this encounter Visit Diagnoses Diagnosis Primary insomnia Persistent disorder of initiating or maintaining sleep documented in this encounter Additional Health Concerns Assessment Noted Time PHQ-9 Depression Total Score: 21 023 4:00 PM EDT documented as of this encounter Care Teams Financial Services Officer Relationship Specialty Start Date End Date Denise Fleming MD [address] [place] [phone] PCP - General Family Medicine 05/10/19 documented as of this encounter
--- OUTSIDE RECORDS SUMMARY | 2024-08-08 18:12 | XMS_ITS | Encounter Summary ---
Author Organization [employer] Address [address] [facility] [address] [address] 7t [place] [address] Care Team Providers Care Merchandise Examiner Name Role Phone Denise Fleming MD Primary Care Provide r Reason for Visit * Reason Comments Med Refill Encounter Details Date Type Department Care Team (Late st Contact Info) Description 07/25/[address] [facility] [address] [place], [place] [phone] Denise Fleming MD [address] [place], [place] [phone] Primary insomnia Social History Tobacco Use Types [...] problems with any of the following? Lead [place] or [place] 08/25/2023 Food Insecurity Answer [...] Description 09/17/2024 2:45 PM EST Office Visit [facility] [address] [place] [phone] Denise Fleming MD [address] [place] [phone] documented as of this encounter Visit Diagnoses Diagnosis Primary insomnia Persistent disorder of initiating or maintaining sleep documented in this encounter Additional Health Concerns Assessment Noted Time PHQ-9 Depression Total Score: 24 024 1:27 PM EDT documented as of this encounter Care Teams Merchandise Examiner Relationship Specialty Start Date End Date Denise Fleming MD [address] [place] [phone] PCP - General Family Medicine 05/10/19 documented as of this encounter
--- OUTSIDE RECORDS SUMMARY | 2024-08-08 18:12 | XMS_ITS | Clinical Summary ---
Author Organization [facility] ity Address [address] [place] [address] Care Team Providers Care Claims Adjuster Crop Name Role Phone Unavailable Primary Care Provider Unavailabl e Social History Tobacco Use Types Packs/Day Years Used Date Smoking Tobacco: Never Assessed Sex and Gender Information Value Date Recorded Sex Assigned at Not on file Gender Identity Not on file Sexual Orientation Not on file Plan of Treatment Health Maintenance Due Date Last Done Comments Breast Cancer Screening 1963 DTaP,Tdap,and Td Vaccines (1 - Tdap) 1982 Cervical Cancer Screening: P ap Smear 1984 Zoster Vaccines (1 of 2) 2013 COVID-19 Vaccine ( - 2023-2 5 season) 2024 Influenza Vaccine (#1) 2024 RSV Immunization Patients 60 + Years Old (1 - 1-dose 75+ series) 2038 HIB Vaccines Aged Out No longer eligi [...] on patient's age to complete this topic MMR Vaccines Aged Out No longer eligi ble based on patient's age to complete this topic Meningococcal ACWY Vaccine Aged Out N o longer eligible based on patient's age to complete this topic Pneumococcal Vaccine: Pediat rics (0 to 5 Years) and At-Risk Patients (6 to 64 Years) Aged Out No longer eligible b ased on patient's age to complete this topic RSV Immunization Patients Un hammad 20 months Aged Out No longer eligible b ased on patient's age to complete this topic Varicella Vaccines Aged Out No longer eligible based on patient's age to complete this topic
--- OUTSIDE RECORDS SUMMARY | 2024-08-08 18:12 | XMS_ITS | Encounter Summary ---
Author Organization [employer] Address [address] [place] [address] Care Team Providers Care Vp Compliance Name Role Phone Denise Fleming MD Primary Care Provide r Encounter Details Date Type Department Care Team (Latest Contact Info) Description 08/08/2024 Travel Social History Tobacco Use Types Packs/Day Years [...] problems with any of the following? Lead [place] or [place] 08/25/2023 Food Insecurity Answer Date [...] Description 09/17/2024 2:45 PM EST Office Visit [facility] [address] [place] [address] Denise Fleming MD [address] [place], [place] [phone] documented as of this encounter Visit Diagnoses Not on filedocumented in this encounter Additional Health Concerns Assessment Noted Time PHQ-9 Depression Total Score: 24 024 1:27 PM EDT documented as of this encounter Care Teams Vp Compliance Relationship Specialty Start Date End Date Denise Fleming MD [address] [place] [phone] PCP - General Family Medicine 05/10/19 documented as of this encounter
--- OUTSIDE RECORDS SUMMARY | 2024-08-08 18:12 | XMS_ITS | Encounter Summary ---
Author Organization [employer] Address [address] [place] [address] Care Team Providers Care Director Career Services Name Role Phone Denise Fleming MD Primary Care Provide r Encounter Details Date Type Department Care Team (Latest Contact Info) Description 08/08/2024 10:45 AM EST Procedure Visit [facility] [address] [place], [place] [phone] Denise Fleming MD [address] [place], [place] [phone] Encounter for cervical Pap smear with pelvic exam (Primary Dx); Primary hypertension Social History Tobacco Use Types [...] problems with any of the following? Lead [place] or [place] 08/25/2023 Food Insecurity Answer Date [...] AM EDT documented as of this encounter Last Filed Vital Signs Vital Sign Reading [...] Mass Index 32.19 08/08/2024 10:30 AM EST documented in this encounter Progress Notes * Denise Daniels MD - 08/08/2024 10:45 AM EST SUBJECTIVE: Denise Ojeda is a 59 y.o. year old female who presents for Pap . Patient denies breast pain, breast lumps, changes in breast skin, nipple retraction or nipple discharge Patient denies pelvic pain, irregular bleeding, vaginal discharge Social History Social History Narrative Not on file Patient Active Problem List Diagnosis Angina pectoris (CMS/HCC) Carpal tunnel syndrome Chronic low back pain History of myocardial infarct at age less than 60 years Hyperlipidemia Hypertensive disorder Insomnia KYM (generalized anxiety disorder) Posttraumatic stress disorder Moderate persistent asthma Severe recurrent major depression without psychotic features (CMS/HCC) Varicose veins of lower extremity Partially edentulous mandible Varicose veins of bilateral lower extremities with other complications Colon cancer screening 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 HENT: Negative. Respiratory: Negative. Cardiovascular: Negative. Genitourinary: Negative. OBJECTIVE: Vitals: 08/08/24 1030 BP: 114/64 BP Location: Left arm Patient Position: Sitting BP Cuff Size: Adult Pulse: 66 Resp: 20 Temp: 97.6 ??F (36.4 ??C) TempSrc: Oral SpO2: 97% Weight: 159 lb 6.4 oz (72.3 kg) Height: 4' 11 (1.499 m) Physical Exam Constitutional: Appearance: Normal appearance. Cardiovascular: Rate and Rhythm: Normal rate and regular rhythm. Pulmonary: Effort: Pulmonary effort is normal. Breath sounds: Normal breath sounds. Abdominal: General: Abdomen is flat. Palpations: Abdomen is soft. Musculoskeletal: Right lower leg: No edema. Left lower leg: No edema. Neurological: Mental Status: She is alert. Follow Up: No follow-ups on file. Current Outpatient Medications on File Prior to Visit Medication Sig Dispense Refill albuterol 108 (90 Base) MCG/ACT inhaler Inhale 2 puffs every 6 (six) hours if needed for wheezing. 18 g 0 Aspirin Low Dose 81 MG EC tablet TAKE 1 TABLET BY MOUTH EVERY EVENING 90 tablet 1 atenolol (Tenormin) 25 MG tablet TAKE 1/2 TABLET BY MOUTH TWICE DAILY IN THE MORNING AND AT ODELQQH74 tablet 3 atorvastatin (Lipitor) 80 MG tablet TAKE 1 TABLET BY MOUTH AT BEDTIME 90 tablet 3 budesonide-formoterol (Symbicort) 160-4.5 MCG/ACT inhaler Inhale 2 puffs in the morning and at bedtime. Rinse mouth with water after use to reduce aftertaste and incidence of candidiasis. Do not swallow. 1 each 11 citalopram (CeleXA) 20 MG tablet Take 1 tablet (20 mg) by mouth Once per day. 30 tablet 5 clotrimazole-betamethasone (Lotrisone) cream APPLY TO AFFECTED AREA(S) AND SURROUNDING AREA(S) TWICE DAILY IN THE MORNING AND EVENING 15 g 2 docusate sodium (Colace) 100 MG capsule Take 1 tab po bid prn constipation 60 capsule 2 fluticasone (Flonase) 50 MCG/ACT nasal spray INHALE 2 SPRAYS IN EACH NOSTRIL EVERY MORNING NEEDED FOR ALLERGIES 48 g 1 hydrocortisone (Anusol-HC) 2.5 % rectal cream Insert into the rectum 2 times daily. 28 g 0 montelukast (Singulair) 10 MG tablet TAKE 1 TABLET BY MOUTH EVERY EVENING 90 tablet 1 pantoprazole (ProtoNix) 40 MG EC tablet TAKE 1 TABLET BY MOUTH EVERY MORNING 90 tablet 1 prazosin (Minipress) 2 MG capsule TAKE 2 CAPSULES BY MOUTH EVERY DAY AT BEDTIME 180 capsule 1 psyllium (Metamucil Smooth Texture) 58.6 % powder Take 5.12 g (3 g of fiber) by mouth 2 times daily. 283 g 2 zolpidem (Ambien) 10 MG tablet TAKE 1 TABLET BY MOUTH AT BEDTIME 30 tablet 0 No current facility-administered medications on file prior to visit. Problem List Items Addressed This Visit Encounter for cervical Pap smear with pelvic exam - Primary PAP and pelvic exam done Patient will be contacted with results Relevant Orders Pap Smear Hypertensive disorder I advised: - Aerobic exercise to reduce BP. Initial goal of 30 min walk 3-5x/week. Increase as tolerated. - low-sodium diet (goal: <2g/day) and heart healthy diet such as DASH to reduce BP and prevent ASCVD. - Home BP monitoring 1-2 x day with goal of <140/90. - Seek immediate medical attention for chest pain, palpitations, SOB, syncope, or sudden changes inmental status. - Do not change or discontinue current prescriptions without first consulting health care provider Relevant Orders CBC auto differential Comprehensive Metabolic Panel Hemoglobin A1c HIV-1/2 Antigen and Antibodies, Fourth Generation, with Reflexes Hepatitis C Antibody with Reflex to HCV, RNA, Quantitative, Real-Time PCR Lipid Panel, Standard Vitamin D, 25-Hydroxy, Total, Immunoassay TSH with Reflex to Free T4 documented in this encounter Miscellaneous Notes * Assessment & Plan Note - Denise Daniels MD - 08/08/2024 3:25 PM EST Associated Problem(s): Encounter for cervical Pap smear with pelvic exam PAP and pelvic exam done Patient will be contacted with results * Assessment & Plan Note - Denise Daniels MD - 08/08/2024 3:25 PM EST Associated Problem(s): Hypertensive disorder I advised: - Aerobic exercise to reduce BP. Initial goal of 30 min walk 3-5x/week. Increase as tolerated. - low-sodium diet (goal: <2g/day) and heart healthy diet such as DASH to reduce BP and prevent ASCVD. - Home BP monitoring 1-2 x day with goal of <140/90. - Seek immediate medical attention for chest pain, palpitations, SOB, syncope, or sudden changes inmental status. - Do not change or discontinue current prescriptions without first consulting health care provider documented in this encounter Plan of Treatment Upcoming Encounters Date Type Department Care Team (Late st Contact Info) Description 09/17/2024 2:45 PM EST Office Visit [facility] [address] [place] [phone] Denise Fleming MD [address] [place] [address] Scheduled Orders Name Type Priority Associated Diagnoses Orde r Schedule Pap Smear Pathology and Cytology Routine Encounter for cervical Pap smear with pelvic exam Ordered: 08/08/2024 CBC auto differential Lab Routine Primary hypertension Expected: 08/08/2024 (Approximate), Expires: 08/08/2025 Comprehensive Metabolic Panel Lab Routine Primary hypertension Expected: 08/08/2024 (Approximate), Expires: 08/08/2025 Hemoglobin A1c Lab Routine Primary hypertension Expected: 08/08/2024 (Approximate), Expires: 08/08/2025 HIV-1/2 Antigen and Antibodies, Fourth Generation, with Reflexes Lab Routine Primary hypertension Expected: 08/08/2024 (Approximate), Expires: 08/08/2025 Hepatitis C Antibody with Reflex to HCV, RNA, Quantitative, Real-Time PCR Lab Routine Primary hypertension Expected: 08/08/2024, Expires: 08/08/2025 Lipid Panel, Standard Lab Routine Primary hypertension Expected: 08/08/2024 (Approximate), Expires: 08/08/2025 Vitamin D, 25-Hydroxy, Total, Immunoassay Lab Routine Primary hypertension Expected: 08/08/2024 (Approximate), Expires: 08/08/2025 TSH with Reflex to Free T4 Lab Routine Primary hypertension Expected: 08/08/2024 (Approximate), Expires: 08/08/2025 documented as of this encounter Visit Diagnoses Diagnosis Encounter for cervical Pap smear with pelvic exam- Primary Primary hypertension Unspecified essential hypertension documented in this encounter Additional Health Concerns Assessment Noted Time PHQ-9 Depression Total Score: 24 024 1:27 PM EDT documented as of this encounter Care Teams Director Career Services Relationship Specialty Start Date End Date Denise Fleming MD [address] [place] [id number] PCP - General Family Medicine 05/10/19 documented as of this encounter
[2024-08-14 12:33] LABS: HPV Genotype 16 Negative (Negative); HPV Genotype 18 Negative (Negative); HPV High Risk Negative (Negative)
== END 2024-08-08 16:11 | disposition home or self-care (01) ==
LOC: HO.HHCLNP 16:10
PROVIDERS: Visit Provider Internal Medicine
DX: Z01.419 Encounter for gynecological examination (general) (routine) without abnormal findings (principal)
CPT/HCPCS: 87626; 88175

== ENCOUNTER 2024-08-09 10:25 | Outpatient (REF) | payer MEDICAID, SELFPAY ==
[2024-08-09 11:28] LABS: MANUAL DIFF FLAG NO
[2024-08-09 11:36] LABS: Basophils Percent Auto 0.6 % (0-2); Eosinophils Absolute Auto 0.2 X10*3/uL (0.0-0.4); Eosinophils Percent Auto 3.9 % (0-4); Hematocrit 36.9 % (37.0-47.0); Imm Gran Abs Auto 0.01 X10*3/uL (0.00-0.03); Imm Gran Pct Auto 0.2 % (0.0-0.4); Lymphocytes Absolute Auto 1.7 X10*3/uL (1.2-4.9); Lymphocytes Percent Auto 32.4 % (20-40); Mean Corpuscular HGB Conc 32.5 g/dl (31.0-35.0); Mean Corpuscular Hemoglobin 30.2 pg (27.0-33.0); Mean Corpuscular Volume 92.9 fL (80.0-98.0); Mean Platelet Volume 11.1 fL (9.4-12.3); Monocytes Absolute Auto 0.4 X10*3/uL (0.1-1.2); Monocytes Percent Auto 8.3 % (2-11); Neutrophils Absolute Auto 2.8 x10*3/uL (2.0-8.3); Neutrophils Percent Auto 54.6 % (45-73); Platelet Count 250 X10*3/uL (160-400); Red Blood Count 3.97 X10*6/uL (4.20-5.50); Red Cell Distribution Width 13.2 % (11.0-16.0); White Blood Count 5.2 X10*3/uL (4.8-10.8)
[2024-08-09 11:46] LABS: Estimated Average Glucose 114 mg/dL; Hemoglobin A1C 120.4191 umol/L; Hemoglobin A1c % 5.6 % (<6.0); Total Hemoglobin (HGBA1C) 3203.9671 umol/L
[2024-08-09 11:49] LABS: Alanine Aminotransferase 17 U/L (0-31); Albumin Level 3.5 g/dL (3.5-5.0); Alkaline Phosphatase 77 U/L (39-117); Anion Gap 8 (12-20); Aspartate Amino Transferase 20 U/L (5-31); Bilirubin Total 0.5 mg/dL (0.0-1.0); Blood Urea Nitrogen 13 mg/dL (9-16); Calcium 9.5 mg/dL (8.4-10.2); Carbon Dioxide 27 mmol/L (22-29); Chloride 112 mmol/L (96-108); Cholesterol 133 mg/dL (<200); Estimated Glomerular Filt Rate > 60; Glucose Random 100 mg/dL (60-115); HDL Cholesterol 51 mg/dL (>40); LDL Cholesterol Calculated 69 mg/dL (<100); Potassium 4.3 mmol/L (3.3-5.1); Sodium 143 mmol/L (135-145); Total Protein 7.2 g/dL (6.5-8.0); Triglycerides 65 mg/dL (<150)
[2024-08-09 12:06] LABS: TSH reflex Free T4 1.57 uIU/mL (0.32-4.0); Vitamin D 25-OH Total 31.1 ng/mL (>30)
[2024-08-09 12:27] LABS: HIV AB/AG Nonreactive (Nonreactive); HIV Num 1 0.05 S/CO (0.00-0.99); ~HepC Num1 0.14 S/CO (0.00-0.79); ~Hepatitis C Antibody Nonreactive (Nonreactive)
== END 2024-08-09 10:26 | disposition home or self-care (01) ==
LOC: HO.HHCL 10:25
PROVIDERS: Visit Provider Internal Medicine
DX: I10 Essential (primary) hypertension (principal)
CPT/HCPCS: 36415; 80053; 80061; 82306; 83036; 84443; 85025; 86803; 87389